=== PATIENT | male | born 1980 | race Caucasian/White ===

== ENCOUNTER 2016-11-19 08:55 | Emergency (ER) | payer BC, MEDICAID ==
--- NOTE | ~2016-11-19 | CR181 ---
[facility] A Service of [facility] RADIOLOGY TEXT RESULTS PATIENT: BEST CLARK LOCATION: SED : 84 UNIT #: [id number] AGE: [address]: Orville Rick MD SEX: M ORDER DR: [id number] [place] [id number] E MR#: [id number] Acc #: [id number] NAME: BEST CLARK. : 1980 SEX: M STUDY DATE/TIME: 11/19/2016 9:59 UNIT: SED ROOM: STUDY DESCRIPTION: CR Lumbar Spine 2 or 3 Views Attending Physician: Orville Rick M.D. Ordering Physician: Orville Rick M.D. Primary Care Physician: Myles García M.D. MEDICAL IMAGING REPORT This report is preliminary unless electronic signature is present. EXAM Lumbar spine 3-view series INDICATIONS Low back pain this morning after having seizure. COMPARISON 12/19/15 FINDINGS Three views of the lumbar spine were obtained. There is disc space narrowing at L3-4 with prominent flowing anterior osteophyte formation that has developed since December 19, 2015. There is minimal loss of height of L1, which was noted as an acute fracture on 12/19/15. There is disc space narrowing at T12-L1. The alignment is normal. IMPRESSION 1. Old mild compression of the superior portion of L1, unchanged from 12/19/15. 2. Prominent osteophyte formation bridging the anterior margins of L3 and L4, and there is disc space narrowing at that level and this has developed since 12/19/15. 3. No acute findings are identified. Dictated by... Patricio Kang M.D. THIS IS AN ELECTRONICALLY VERIFIED REPORT Patricio Kang M.D. at 11/20/2016 7:26 AM [facility] A Service of [facility] RADIOLOGY TEXT RESULTS PATIENT: BEST CLARK LOCATION: SED : 84 UNIT #: [id number] AGE: [address]: Orville Rick MD SEX: M ORDER DR: ZEINAB/arron TD: 11/19/2016 16:48 JOB #: [id number] MEDICAL IMAGING REPORT Page 1 of 1
[~2016-11-19 08:55] MED LIST: ADVIL200 M3 PO; FLEXERIL10 MG PO; KEPPRA500 M2 PO; NAPROSYN500 MG PO; NO MEDICATIONS
[2016-11-19] MEDS ORDERED: DEPAKOTE ER PO (09:12)
[2016-11-19 10:30] LABS: ALBUMIN SERUM 4.1 g/dL (3.5-5.0); BILIRUBIN,TOTAL 0.3 mg/dL (0.2-2.0); BUN/CREATININE RATIO 11.42; CALCIUM SERUM 8.5 mg/dL (8.4-10.2); CREATININE SERUM 0.7 mg/dL (0.6-1.4); GLOM FILT RATE Estimated 123.2 mL/min (>60); POTASSIUM 3.1 mmol/L (3.5-5.1); PROTEIN TOTAL SERUM 6.6 g/dL (6.0-8.3)
== END 2016-11-19 10:55 | disposition home or self-care (01) ==
LOC: SED 08:55
PROVIDERS: Emergency Medicine
DX: G40.409 Other generalized epilepsy and epileptic syndromes, not intractable, without status epilepticus (principal); M54.5 Low back pain; E16.2 Hypoglycemia, unspecified; F17.210 Nicotine dependence, cigarettes, uncomplicated; Z88.8 Allergy status to other drugs, medicaments and biological substances; Z79.899 Other long term (current) drug therapy
CPT/HCPCS: 36415; 72100; 80053; 80164; 99284